=== PATIENT | male | born 1950 ===

== ENCOUNTER 2017-04-15 06:29 | Day surgery (SDC) | payer MEDICARE ==
[2016-12-25 12:13] VITALS: BMI 28.1
[2017-04-15] MEDS ORDERED: Propofol 10 mg/ml Inj (20 ML) ONE (08:45)
--- NOTE | 2017-04-15 08:45 | CP.SDSHP ---
Same Day Surgery H & P - History Proposed Procedure: COLONSCOPY Pre-Op Diagnosis: COLON CA - Previous Medical/Surgical History Cardiac: Hypertension Neuro: Other Misc: Other Pain: 2.Mild Pain Previous Surgical History: PARTIAL COLON RESECTION - Allergies Allergies: Allergies No Known Allergies Allergy (Verified 12/25/16 12:31) - Physical Exam General Appearance: N Vital Signs: Vital Signs 04/15/17 06:58 Temperature 98 F Pulse Rate 80 Respiratory 20 Rate Blood Pressure 143/76 O2 Sat by Pulse 97 Oximetry Mental Status: Alert & Oriented x3 Neuro: WNL Heart: Other Lungs: WNL GI: Other - {Optional Preform as Required} Breast: WNL Abdomen: Other Rectal: Other Integument: WNL : WNL Ortho: WNL ENT: WNL - Impression Pt. Evaluated Today:Candidate for Anesthesia & Procedure: Yes - Date & Time Time: 08:45 Short Stay Discharge - Short Stay Discharge Admitting Diagnosis/Reason for Visit: HISTORY OF COLON CA Disposition: HOME/ ROUTINE
[2017-04-15] MEDS ORDERED: Belladonna-Phenobarbital PO ONE ×2 (09:00→10:15)
[2017-04-15] MEDS ORDERED: Lactated Ringer's 500 ML IV SCH (09:00)
[2017-04-15 11:33] VITALS: TEMP 97
[2017-04-15 11:34] VITALS: O2SAT 99
[2017-04-15 11:42] VITALS: BP 132/70; PULSE 76; RESP 20
== END 2017-04-15 10:20 | disposition home or self-care (01) ==
LOC: C.ENDO 06:29
PROVIDERS: ATTEND Specialist
DX: Z12.11 Encounter for screening for malignant neoplasm of colon (principal); Z85.038 Personal history of other malignant neoplasm of large intestine; K64.8 Other hemorrhoids; K57.30 Diverticulosis of large intestine without perforation or abscess without bleeding
CPT/HCPCS: 45380; 88305; J2704; J3010; J7120

== ENCOUNTER 2018-06-16 07:37 | Day surgery (SDC) | payer MEDICARE | END 2018-06-16 10:10 | disposition home or self-care (01) | LOC: C.ENDO 07:37 | DX: Z85.038 Personal history of other malignant neoplasm of large intestine (principal); Z86.010 Personal history of colon polyps ==